=== PATIENT | female | born 1950 | race Caucasian/White ===

== ENCOUNTER 2019-10-16 10:51 | Emergency (ER) | payer MEDICARE ==
[~2019-10-16] VITALS: Ht 170.2 cm; Wt 79.5 kg
[2019-10-16] MEDS ORDERED: ALBU8HFA IH (10:56)
[2019-10-16] MEDS ORDERED: ALBUTEROL SULFATE 5 MG/ML 20 ML NEB SOLN [BULK] NEB STA (10:57)
[2019-10-16] MEDS ORDERED: 0.9% SODIUM CHLORIDE 5 ML NEB SOLUTION NEB ONE (11:07)
[2019-10-16] MEDS ORDERED: DEXAMETHASONE SOD PHOS 4 MG/ML 5 ML VIAL IM ONE (12:00)
[2019-10-16] MEDS ORDERED: ALBUTEROL SULFATE HFA 90 MCG/PUFF 8 GM INHALER IH ONE (13:00)
[2019-10-16 14:18] VITALS: BP 132/79
== END 2019-10-16 14:20 | disposition home or self-care (01) ==
LOC: EMS 10:53
DX: J45.909 Unspecified asthma, uncomplicated (principal); Z87.891 Personal history of nicotine dependence; Z79.899 Other long term (current) drug therapy; Z88.6 Allergy status to analgesic agent
CPT/HCPCS: 94640; 94644; 96372; 99285; J1100; J3535